=== PATIENT | male | born 1985 | race American Indian/Alaskan Native ===

== ENCOUNTER 2016-12-13 12:20 | Emergency (ER) | payer MEDICAID ==
[2016-12-13 12:21] VITALS: BMI 21.5
[2016-12-13 12:55] VITALS: BP 113/55; PULSE 72; RESP 18; TEMP 97.1; O2SAT 99
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
== END 2016-12-13 13:49 | disposition home or self-care (01) ==
LOC: H.ER 12:20
DX: Z48.02 Encounter for removal of sutures (principal)

== ENCOUNTER 2016-12-21 19:00 | Emergency (ER) | payer MEDICAID ==
[2016-12-21 19:00] VITALS: BMI 21.5
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
[2016-12-21 23:54] VITALS: BP 118/78; PULSE 68; RESP 18; TEMP 98; O2SAT 99
== END 2016-12-21 23:54 | disposition home or self-care (01) ==
LOC: H.ER 19:00
DX: F10.129 Alcohol abuse with intoxication, unspecified (principal); G89.29 Other chronic pain

== ENCOUNTER 2017-03-20 18:09 | Emergency (ER) | payer MEDICAID, OTHER ==
[2017-03-20 18:09] VITALS: BMI 21.5
[2017-03-20 18:17] VITALS: BP 123/88; PULSE 78; RESP 16; TEMP 98.7; O2SAT 100
--- NOTE | 2017-03-20 18:41 | ED PDOC ---
HPI: General Adult Time Seen by Provider: 03/20/17 18:19 Chief Complaint (Nursing): Abnormal Skin Integrity Chief Complaint (Provider): bleeding from external nose History Per: Patient History/Exam Limitations: no limitations Current Symptoms Are (Timing): Still Present Additional Complaint(s): 31 year old male presents to the ED for a chief complaint of bleeding from left external nose. [place] and noticed bleeding from skin on external nose. Patient thinks he may have scratched area causing bleeding. He denies any epistaxis from nares. He denies any pain. Past Medical History Reviewed: Historical Data, Nursing Documentation, Vital Signs Vital Signs: Last Vital Signs Temp 98.7 F 03/20/17 18:13 Pulse 78 03/20/17 18:13 Resp 16 03/20/17 18:13 BP 123/88 03/20/17 18:13 Pulse Ox 100 03/20/17 19:00 - Medical History PMH: Chronic Pain (left foot pain) - Surgical History Surgical History: No Surg Hx - Family History Family History: States: No Known Family Hx - Living Arrangements Living Arrangements: Other (non-domiciled) - Social History Current smoker - smoking cessation education provided: No Alcohol: None Drugs: Denies - Immunization History Hx Tetanus Toxoid Vaccination: Yes - Home Medications Home Medications: Ambulatory Orders Medication Instructions Recorded Naproxen 1 tab PO Q8 PRN #21 tab 12/08/15 - Allergies Allergies/Adverse Reactions: Allergies Allergy/AdvReac Type Severity Reaction Status Date / Time No Known Allergies Allergy Verified 12/21/16 19:03 Review of Systems ROS Statement: Except As Marked, All Systems Reviewed And Found Negative Constitutional: Negative for: Fever ENT: Positive for: Other (Bleeding from external nose ) Respiratory: Negative for: Shortness of Breath Gastrointestinal: Negative for: Vomiting Neurological: Negative for: Headache, Dizziness Physical Exam - Reviewed Nursing Documentation Reviewed: Yes Vital Signs Reviewed: Yes - Physical Exam Appears: Positive for: Well, Non-toxic, No Acute Distress Head Exam: Positive for: ATRAUMATIC Skin: Positive for: Normal Color. Negative for: Rash Eye Exam: Positive for: Normal appearance ENT: Positive for: Normal ENT Inspection, Other (minute puncture wound left external nares, mild active bleeding, bilateral nares are patent, no bleeding from nares). Negative for: Pharyngeal Erythema, Tonsillar Swelling Cardiovascular/Chest: Positive for: Regular Rate, Rhythm Respiratory: Positive for: Normal Breath Sounds Neurologic/Psych: Positive for: Alert, Oriented - ECG O2 Sat by Pulse Oximetry: 100 (RA) Pulse Ox Interpretation: Normal Medical Decision Making Medical Decision Makin: Initial Impression: Bleeding from external nose due to puncture wound Plan: Neosynephrine soaked gauze to affected area. Shortly after application of gauze, bleeding stopped. Patient observed for 30 minutes in ED, no further bleeding noted. Patient given wound care instructions. Scribe Attestation: Documented by Renea Regalado acting as a scribe for Liliam Lan PA-C. Provider Scribe Attestation: All medical record entries made by the Scribe were at my direction and personally dictated by me. I have reviewed the chart and agree that the record accurately reflects my personal performance of the history, physical exam, medical decision making, and the department course for this patient. I have also personally directed, reviewed, and agree with the discharge instructions and disposition. Time Disposition - Clinical Impression Clinical Impression: Puncture wound - Patient ED Disposition Is Patient to be Admitted: No Counseled Patient/Family Regarding: Diagnosis, Need For Followup - Disposition Referrals: [facility] [Outside] Disposition: Routine/Home Disposition Time: 19:28 Condition: STABLE Additional Instructions: Apply direct pressure to affected if bleeding starts again. Follow up with clinic or return any time if worse. Instructions: Puncture Wound (ED) Forms: [employer] ([place])
[2017-03-20] MEDS ORDERED: Phenylephrine 0.25% NASAL Spray (15ML) NAS STA (18:56)
[2017-03-20] MEDS ORDERED: Phenylephrine 0.5% Nasal Spray NAS ONE (19:06)
== END 2017-03-20 20:05 | disposition home or self-care (01) ==
LOC: H.ER 18:09
DX: T14.8 Other injury of unspecified body region (principal); Y92.89 Other specified places as the place of occurrence of the external cause